=== PATIENT | male | born 1945 | race Caucasian/White ===

== ENCOUNTER 2020-02-19 11:25 | Emergency (ER) | payer OTHER ==
[~2020-02-19] VITALS: Ht 170.2 cm; Wt 116.1 kg
[~2020-02-19 11:25] MED LIST: ASA81 MG; ATENOLOL50 MG
[2020-02-19] MEDS ORDERED: XARELTO20 MG (11:44)
[2020-02-19] MEDS ORDERED: AMLODIPINE-OLM1 EAC2 (11:44)
[2020-02-19] MEDS ORDERED: ATORVASTATIN CA10 MG (11:44)
[2020-02-19] MEDS ORDERED: PROPAFENONE HC225 M1 (11:44)
[2020-02-19] MEDS ORDERED: LOSARTAN-HCTZ1 EAC2 (11:45)
[2020-02-19] MEDS ORDERED: BACTRIM DS TAB1 EACH PO (15:29)
[2020-02-19] MEDS ORDERED: INTESTINEX680 M1 PO (15:29)
== END 2020-02-19 15:50 | disposition home or self-care (01) ==
LOC: ER 11:25
DX: N39.0 Urinary tract infection, site not specified (principal); B96.1 Klebsiella pneumoniae [K. pneumoniae] as the cause of diseases classified elsewhere; R31.29 Other microscopic hematuria; R35.8 Other polyuria

== ENCOUNTER → 2020-07-28 | Outpatient (CLI) | payer OTHER ==
[~2020-07-28] MED LIST changes: +AMLODIPINE-OLM1 EAC2; +ATORVASTATIN CA10 MG; +BACTRIM DS TAB1 EACH PO; +INTESTINEX680 M1 PO; +LOSARTAN-HCTZ1 EAC2; +PROPAFENONE HC225 M1; +XARELTO20 MG
== END | disposition home or self-care (01) ==
LOC: MRI 09:15
PROVIDERS: ATTEND General Practice
DX: M54.5 Low back pain (principal); M54.16 Radiculopathy, lumbar region
CPT/HCPCS: 72146; 72148

== ENCOUNTER 2022-05-30 15:39 | Emergency (ER) | payer OTHER ==
[~2022-05-30] VITALS: Ht 182.9 cm; Wt 117.0 kg
[2022-05-30] MEDS ORDERED: METOPROLOL SUC200 MG (15:50)
== END 2022-05-30 20:20 | disposition home or self-care (01) ==
LOC: ER 15:39
DX: U07.1 COVID-19 (principal); I10 Essential (primary) hypertension

== ENCOUNTER 2023-12-25 11:46 | Outpatient (CLI) | payer OTHER ==
[~2023-12-25 11:46] MED LIST changes: +METOPROLOL SUC200 MG
== END 2023-12-25 11:56 | disposition home or self-care (01) ==
LOC: MRI 11:46
DX: M48.062 Spinal stenosis, lumbar region with neurogenic claudication (principal)
CPT/HCPCS: 72148

== ENCOUNTER 2024-01-13 06:12 | Outpatient (CLI) | payer OTHER ==
[2024-01-13 08:28] LABS: INR 1.2; PROTHROMBIN TIME 12.4 SECONDS (9.0-11.5)
[2024-01-13 08:58] LABS: PARTIAL THROMBOPLASTIN TIME 42.6 SECONDS (22.0-34.0)
== END 2024-01-13 14:20 | disposition home or self-care (01) ==
LOC: LAB 06:12
PROVIDERS: ATTEND Anesthesiology
DX: D68.9 Coagulation defect, unspecified (principal)

== ENCOUNTER 2024-01-13 07:09 | Day surgery (SDC) | payer OTHER ==
[2024-01-08 12:39] LABS: HEMATOCRIT 35.9 % (39.0-48.0); HEMOGLOBIN 12.6 g/dL (13-16.00); MEAN CELL VOLUME 99.6 fL (80.0-100.00); MEAN CORPUSCULAR HEMOGLOBIN 34.8 pg (27.00-32.0); PLATELET COUNT 137 K/uL (150-450); RED BLOOD COUNT 3.61 M/uL (4.00-6.00); RED CELL DISTRIBUTION WIDTH 13.5 % (11.5-14.5)
[2024-01-08 12:52] LABS: URINE APPEARANCE Clear; URINE BILIRRUBIN Negative (NEGATIVE); URINE BLOOD Negative; URINE COLOR Yellow; URINE GLUCOSE Negative (NEGATIVE); URINE LEUKOCYTE Negative; URINE NITRATE Negative; URINE PROTEIN Negative (NEGATIVE)
[2024-01-08 12:53] LABS: URINE BACTERIA 96.9 uL (0.0-1933); URINE EPITHELIAL CELLS 25.6 uL (0.0-38.8); URINE RBC 3.1 uL (0.0-20.8); URINE WBC 3.4 uL (0.0-23.2)
[2024-01-08 13:21] LABS: ALBUMIN 3.6 gm/dL (3.4-5.0); BILIRUBIN TOTAL 0.95 mg/dL (0.3-1.2); CALCIUM 9.1 mg/dL (8.5-10.1); CREATININE SERUM 0.83 mg/dL (0.70-1.30); GFR 89.84; GLOBULINA 3.3 G/DL (2.4-3.5); POTASSIUM 4.58 mEq/L (3.5-5.1); TOTAL PROTEIN 6.9 gm/dL (6.4-8.2)
[2024-01-08 13:50] LABS: INR 1.21; PROTHROMBIN TIME 12.5 SECONDS (9.0-11.5)
[2024-01-08 13:51] LABS: PARTIAL THROMBOPLASTIN TIME 41.6 SECONDS (22.0-34.0)
[2024-01-13] MEDS ORDERED: CEFAZOLIN SODIUM 1,000 MG VIAL ONE (11:31)
[2024-01-13] MEDS ORDERED: LIDOCAINE HCL 1%/Epi 20ML VIAL IJ ONE ×2 (13:22→14:45)
[2024-01-13] MEDS ORDERED: CEFAZOLIN SODIUM 1,000 MG VIAL IV ONE (14:45)
== END 2024-01-13 16:05 | disposition home or self-care (01) ==
LOC: CIR.AMB 07:09
PROVIDERS: ATTEND Surgery
DX: D21.0 Benign neoplasm of connective and other soft tissue of head, face and neck (principal)

== ENCOUNTER 2025-02-03 07:31 | Outpatient (CLI) | payer OTHER | END 2025-02-03 07:35 | disposition home or self-care (01) | LOC: RAD 07:31 | PROVIDERS: ATTEND Internal Medicine Rheumatology | DX: M16.0 Bilateral primary osteoarthritis of hip (principal); M17.0 Bilateral primary osteoarthritis of knee ==